=== PATIENT | male | born 1950 | race Caucasian/White ===

== ENCOUNTER → 2019-05-25 | Day surgery (SDC) | payer OTHER ==
[2019-05-22 17:05] LABS: BASOPHILS % 0.4 % (0.0-1.0); EOSINOPHILS # (AUTO) 0.2 (0.0-0.4); EOSINOPHILS % 2.6 % (0.0-6.0); HEMATOCRIT 41.9 % (38.2-49.6); HEMOGLOBIN 13.9 g/dL (14.0-18.0); LYMPHOCYTES # (AUTO) 1.4 (1.0-3.2); LYMPHOCYTES % 16.5 % (18.0-39.1); MEAN CORPUSCULAR HEMOGLOBIN 30.2 pg (28-32); MEAN CORPUSCULAR HGB CONC 33.2 g/dL (31-35); MEAN CORPUSCULAR VOLUME 90.9 fL (81-99); MONOCYTES # (AUTO) 0.8 (0.2-0.8); MONOCYTES % 9.6 % (4.4-11.3); NEUTROPHILS # (AUTO) 5.8 (2.1-6.9); NEUTROPHILS % 70.7 % (38.7-80.0); PLATELET COUNT 197 x10e3/uL (140-360); RED BLOOD COUNT 4.61 x10e6/uL (4.3-5.7); RED CELL DISTRIBUTION WIDTH 13.5 % (11.7-14.4)
[2019-05-22 17:15] LABS: INR 1.09; PARTIAL THROMBOPLASTIN TIME 25.8 seconds (23.8-35.5); PROTHROMBIN TIME 14.6 seconds (11.9-14.5)
--- NOTE | 2019-05-22 17:28 | Diagnostic Imaging Report ---
Chest, 2 views, 05/22/2019. History: Preop, scrotal surgery. Comparison: None available. Findings: The cardiomediastinal silhouette and pulmonary vasculature are within normal limits. The lungs are clear without evidence of consolidation or pleural effusion. Left subclavian pacer is present. Degenerative changes are noted in the thoracic spine. There are no acute osseous or soft tissue abnormalities. Impression: No acute cardiopulmonary abnormality. Signed by: Brandon Francis on 05/22/2019 5:25 PM
[2019-05-22 18:00] LABS: ALANINE AMINOTRANSFERASE 22 IU/L (0-55); ALBUMIN 4.1 g/dL (3.5-5.0); ALBUMIN/GLOBULIN RATIO 1.7 (0.8-2.0); ALKALINE PHOSPHATASE 67 IU/L (40-150); BLOOD UREA NITROGEN 22 mg/dL (7-26); BUN/CREATININE RATIO 29 (6-25); CALCIUM 9.4 mg/dL (8.4-10.2); CARBON DIOXIDE 26 mmol/L (22-29); CHLORIDE 103 mmol/L (98-107); CREATININE, SERUM 0.77 mg/dL (0.72-1.25); EST GLOMERULAR FILTRATION RATE > 60 ML/MIN (60-); GLUCOSE 95 mg/dL (74-118); SODIUM 138 mmol/L (136-145)
[~2019-05-25] MED LIST: ATORVASTATIN CA20 MG PO; CEFOXITIN 1GM/ D5W 50ML 50 ML IV ONE; CLOPIDOGREL75 MG PO; DEXAMETHASONE SOD PHOS INJ 4 MG/ML VIAL ONE; FENTANYL CITRATE/PF 100MCG/2 ML INJ ONE; FUROSEMIDE40 MG PO; HYDROMORPHONE 2MG/ML 2 MG/ML ML ONE; KEFLEX500 MG PO; LEVOTHYROXINE112 MCG PO; LIDOCAINE HCL 2% LOCAL INJ 5 ML SDV VIAL INJ ONE; METOPROLOL PO; MIDAZOLAM HCL 2 MG/2 ML VIAL ONE; NEOSTIGMINE 1 MG/ML 10ML VIAL ONE; ONDANSETRON HCL INJ 2MG/ML 2ML 2 MG/ML VIAL ONE; PROPOFOL IV EMULSION 10 MG/ML 20 ML VIAL ONE; ROCURONIUM BROMIDE 10 MG/ML 5ML VIAL ONE; SEVOFLURANE INHAL SOLN 250 ML PEN BTL ONE; SUCCINYLCHOLINE 200 MG/10 ML SYR ONE; TYLENOL WITH C1 EACH PO
--- OUTSIDE RECORDS SUMMARY | 2019-05-25 10:12 | XMS REPORT ---
Author Author [facility] Address Unknown Phone Unavailable Care Team Providers Care Beater Engineer Name Role Phone URSULA PAUL Unavailable Unavailable Problems This patient has no known problems. Allergies, Adverse Reactions, Alerts This patient has no known allergies or adverse reactions. Medications This patient has no known medications. Results Test Description Test Time Test Comments Text Results Atomic Results Result Comments CHEST 2 VIEWS 2019-05-22 17:24:00 [place] [address] Patient Name: JUDITH ROCAH V MR #: [id number] : 1950 Age/Sex: 68/M Req #: [id number] Adm Physician: Ordered by: URSULA PAUL MD Report #: [id number] Location: OR Room/Bed: Procedure: [id number] DX/CHEST 2 VIEWS Exam Date: 05/22/19 Exam Time: 1631 REPORT STATUS: Signed Chest, 2 views, 05/22/2019. History: Preop, scrotal surgery. Comparison: None available. Findings: The cardiomediastinal silhouette and pulmonary vasculature are within normal limits. The lungs are clear without evidence of consolidation or pleural effusion. Left subclavian pacer is present. Degenerative changes are noted in the thoracic spine. There are no acute osseous or soft tissue abnormalities. Impression: No acute cardiopulmonary abnormality. Signed by: Gabi Francis on 05/22/2019 5:25 PM Dictated By: GABI FRANCIS MD 24 Transcribed By: KERI on 1724 COPY TO: URSULA PAUL MD
--- NOTE | 2019-05-25 16:33 | Operative Report ---
DATE OF PROCEDURE: 05/25/2019 SURGEON: Finesse Mack MD PREOPERATIVE DIAGNOSIS: Left varicocele. POSTOPERATIVE DIAGNOSIS: Left varicocele. OPERATION PERFORMED: Left varicocelectomy. ANESTHESIA: General. INDICATIONS: This patient is a 68-year-old white male, whom I have been following for several years for an elevated prostate-specific antigen. 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 I told him that if they ever bothered him, we could operate on them, but if they do not bother him, there was no point in rushing to do any kind of operation. The patient came in to see me several weeks ago stating that the left side has become severely uncomfortable and that it is now bothering him so much that he would want to have an operation. The patient had a bilateral testicular ultrasound, it showed bilateral varicoceles with a massive varicocele on the left side. For further details, please refer to the history and physical. Procedure was done in following fashion. PROCEDURE IN DETAIL: The patient was taken to the operating room, placed under general anesthesia and dressed it with ChloraPrep in the usual fashion. A 5 minutes wait before beginning the procedure. A subinguinal incision was made with a scalpel and then using a small skin rakes, I was able to lift up on tissues to go through the subcutaneous tissues and expose Alex's fascia. Hemostasis was maintained with pinpoint electrocautery with a coagulation set at 30, uncoagulation at 0. The spermatic cord was identified and I could pull on the testicle to see it move. I was able to manipulate my fingers completely around the spermatic cord and lifted up through the incision and placed a quarter-inch [place] drain beneath it. At this point in time, I then began a skeletonization of the cord. There was a great deal of fat present as the patient is very obese. I dissected through the cremaster. I identified the vas deferens and I could see where several large varicocele veins were coalescing into one huge varicocele vein in the subinguinal region. This varicocele vein was dissected using a combination of blunt and sharp dissection and a right angle clamp placed beneath it. I then placed two free ties of 0 silk proximally and two freeze ties of 0 silk distally and then dissected out a specimen with Luis Fernando, sent to the pathology department for identification of the huge left varicocele vein. I then began further looking at the spermatic cord, again identifying the vas deferens and looking to see if I could find any more large vessels and some smaller vessels were found near by that area and these were again controlled by passing a right angle clamp beneath them and then using two free ties proximally and two free ties distally of 0 silk, I then excised away a specimen for identification. The wound was again inspected for hemostasis and to see if there were any more blood vessels left that I should remove and I did not see anymore and I can identify the vas, the cremaster and there was no evidence of hernia formation. At this point in time, the wound was irrigated and I cut the sutures and then pulled down on the left testicle so that the spermatic cord go back down into the scrotum. The subcutaneous tissues and Alex fascia were closed with interrupted 3-0 chromic and the skin was closed with interrupted mattress sutures of 3-0 chromic. Triple antibiotic ointment, Adaptic, and 4x4s were applied and the patient left the operating room in good condition with scrotal support dressing. The patient will have a return appointment to see me again in the office in two weeks. He will stay at home with an ice bag on the scrotum and scrotal support. Finesse Mack MD SRA/MODL /[id number]
[2019-05-25 16:45] VITALS: BP 129/85
== END | disposition home or self-care (01) ==
LOC: OR 10:07
PROVIDERS: ATTEND Urology
DX: I86.1 Scrotal varices (principal); Z01.812 Encounter for preprocedural laboratory examination; Z01.811 Encounter for preprocedural respiratory examination; R97.20 Elevated prostate specific antigen [PSA]; N40.1 Benign prostatic hyperplasia with lower urinary tract symptoms; R35.1 Nocturia; I25.10 Atherosclerotic heart disease of native coronary artery without angina pectoris; Z95.0 Presence of cardiac pacemaker; I49.9 Cardiac arrhythmia, unspecified; D34 Benign neoplasm of thyroid gland; E03.9 Hypothyroidism, unspecified; K42.9 Umbilical hernia without obstruction or gangrene; E78.5 Hyperlipidemia, unspecified
CPT/HCPCS: 36415; 71046; 80053; 85025; 85610; 85730; 88304; J1100; J2001; J2250; J2405; J2710; J3010